=== PATIENT | female | born 1980 | race Caucasian/White ===

== ENCOUNTER 2019-07-12 08:51 | Emergency (ER) | payer SELFPAY ==
[2019-07-12 10:17] LABS: APPEARANCE,URINE CLEAR; BILIRUBIN,URINE NEGATIVE (NEGATIVE); COLOR,URINE STRAW; GLUCOSE, URINE NEGATIVE (NEGATIVE); KETONES,URINE NEGATIVE (NEGATIVE); LEUKOCYTE ESTERASE,URINE SMALL (NEGATIVE); NITRITE,URINE NEGATIVE (NEGATIVE); PROTEIN,URINE NEGATIVE (NEGATIVE); URINE SPECIFIC GRAVITY 1.009; UROBILINOGEN,URINE NEGATIVE mg/dL (<2.0)
[2019-07-12 10:25] LABS: ABSOLUTE EOSINOPHILS # (AUTO) 0.2 10^3/uL (0.0-0.6); ABSOLUTE LYMPHOCYTES (AUTO) 1.4 10^3/uL (0.5-4.7); ABSOLUTE MONOCYTES (AUTO) 0.5 10^3/uL (0.1-1.4); ABSOLUTE NEUT (AUTO) 4.9 10^3/uL (1.7-8.2); BASOPHILS % (AUTO) 0.5 % (0-2); EOSINOPHILS % (AUTO) 2.5 % (0-6); HEMATOCRIT 36.5 % (36.0-47.0); HEMOGLOBIN 12.7 g/dL (12.0-15.5); LYMPHOCYTES % (AUTO) 20.1 % (13-45); MEAN CORPUSCULAR HEMOGLOBIN 32.1 pg (27.0-33.4); MEAN CORPUSCULAR HGB CONC 34.7 g/dL (32.0-36.0); MEAN CORPUSCULAR VOLUME 92 fl (80-97); MONOCYTES % (AUTO) 7.1 % (3-13); PLATELET COUNT 157 10^3/uL (150-450); RED BLOOD COUNT 3.95 10^6/uL (3.72-5.28); RED CELL DISTRIBUTION WIDTH 12.5 % (11.5-14.0); SEGMENTED NEUTROPHILS % (AUTO) 69.8 % (42-78); TOTAL CELLS COUNTED % (AUTO) 100 %; WHITE BLOOD COUNT 7.1 10^3/uL (4.0-10.5)
[2019-07-12] MEDS ORDERED: ONDANSETRON HCL INJ/PF 4 MG/2 ML SDV IV ONE (10:41)
[2019-07-12] MEDS ORDERED: METHOCARBAMOL INJ/PF 1000 MG/10 ML SDV IV ONE (10:41)
[2019-07-12] MEDS ORDERED: HYDROMORPHONE HCL INJ/PF 2 MG/ML AMPULE IV ONE ×2 (10:41→12:31)
[2019-07-12] MEDS ORDERED: KETOROLAC TROMETHAMINE INJ/PF 30 MG/1 ML SDV IV ONE (10:41)
[2019-07-12 10:54] LABS: ALKALINE PHOSPHATASE 49 U/L (38-126); ANION GAP 8 (5-19); ASPARTATE AMINO TRANSFERASE 20 U/L (14-36); BILIRUBIN,DIRECT 0.2 mg/dL (0.0-0.4); BILIRUBIN,TOTAL 0.4 mg/dL (0.2-1.3); BLOOD UREA NITROGEN 14 mg/dL (7-20); CARBON DIOXIDE 29 mmol/L (22-30); CHLORIDE 101 mmol/L (98-107); GLUCOSE 82 mg/dL (75-110); POTASSIUM 4.2 mmol/L (3.6-5.0); TOTAL PROTEIN 6.8 g/dL (6.3-8.2)
--- NOTE | 2019-07-12 10:55 | ER Document Report ---
Entered by TRI BANERJEE SCRIBE 07/12/19 1025 Acting as scribe for:NESHA GILMORE MD ED General - General Chief Complaint: Flank Pain Stated Complaint: FLANK PAIN Time Seen by Provider: 07/12/19 10:21 Mode of Arrival: Ambulatory Information source: Patient Notes: This 38 year old female patient with a history of kidney stones presents to the ED today with complaints of right-sided flank pain of insidious onset that began x3 days ago. Patient states that she has had 12+ lithotripsies in the past x3 years, the most recent on her right side in April, so she believes she may have another kidney stone. Patient reports associated nausea, chills on and off, a throbbing frontal headache that began yesterday morning, and urinary frequency that may be due to increased water intake from trying to flush out the possible stone. Patient states that she took aleve, toradol, and zorfan without relief. Patient denies fever, abdominal pain, vomiting, or pain and burning with urination. The patient recently moved to this area from the [facility]. Review of the controlled substance reporting database shows multiple narcotic prescriptions written in the past 7 months in [facility]. Last prescription was in the middle of April 2019. - Related Data Allergies/Adverse Reactions: No Known Allergies Allergy (Verified 07/12/19 10:33) Home Medications: Porzac. propanolol. gabapentin Past Medical History - General Information source: Patient - Social History Smoking Status: Former Smoker - quit x10 years ago Cigarette use (# per day): No Chew tobacco use (# tins/day): No Smoking Education Provided: No Frequency of alcohol use: None Drug Abuse: None Lives with: Spouse/Significant other Family History: Reviewed & Not Pertinent Patient has suicidal ideation: No Patient has homicidal ideation: No Renal/ Medical History: Reports: Hx Kidney Stones - x12+ in the last 3 years Musculoskeletal Medical History: Reports Hx Fibromyalgia Psychiatric Medical History: Reports: Hx Depression Past Surgical History: Reports: Hx Breast Surgery - breast augmentation 2013, Hx Herniorrhaphy Review of Systems - Review of Systems Constitutional: See HPI, Chills EENT: No symptoms reported Cardiovascular: No symptoms reported Respiratory: No symptoms reported Gastrointestinal: See HPI, Nausea. denies: Abdominal pain, Vomiting Genitourinary: See HPI, Frequency, Flank pain. denies: Burning, Dysuria Female Genitourinary: No symptoms reported Musculoskeletal: No symptoms reported Skin: No symptoms reported Hematologic/Lymphatic: No symptoms reported Neurological/Psychological: See HPI, Headaches -: Yes All other systems reviewed and negative Physical Exam - Vital signs Vitals: Temp Pulse Resp BP Pulse Ox 97.7 F 75 16 137/80 H 100 07/12/19 08:55 07/12/19 08:55 07/12/19 08:55 07/12/19 08:55 07/12/19 08:55 - General General appearance: Alert - HEENT Head: Normocephalic, Atraumatic Eyes: Normal Pupils: PERRL - Respiratory Respiratory status: No respiratory distress Chest status: Nontender Breath sounds: Normal Chest palpation: Normal - Cardiovascular Rhythm: Regular Heart sounds: Normal auscultation Murmur: No - Abdominal Inspection: Normal Distension: No distension Bowel sounds: Normal Tenderness: Nontender - No tenderness with palpation deep into the RUQ, Other - Abdomen soft Organomegaly: No organomegaly - Back Back: Tender - Right lumbar back musculature tenderness with palpation around the L1-2 region, Other - No skin rash noted - Extremities General upper extremity: Normal inspection General lower extremity: Normal inspection - Neurological Neuro grossly intact: Yes - Psychological Associated symptoms: Normal affect, Normal mood - Skin Skin Temperature: Warm Skin Moisture: Dry Skin Color: Normal Course - Re-evaluation Re-evalutation: 07/12/19 12:15 Urinalysis showed a single RBC on high-power field, no WBCs. Leukocyte esterase negative. Dipstick negative for blood. CT scan shows mild right hydronephrosis and hydroureter without ureteral stone. There is a 2 mm stone in the right dependent aspect of the bladder which is consistent with a recently passed stone. There are no stones in the kidneys. 07/12/19 12:15 All these findings are reviewed with the patient. She states she is never had pain like this when she did not have an obstructing stone or urine infection. She states that the medications she has received so far does not seem to be helping. Physical exam was most consistent with right flank and lumbar muscular pain. There was no tenderness on deep palpation into the right upper quadrant which should have put pressure on the kidney. - Vital Signs Vital signs: Temp Pulse Resp BP Pulse Ox 97.7 F 75 16 137/80 H 100 07/12/19 08:55 07/12/19 08:55 07/12/19 08:55 07/12/19 08:55 07/12/19 08:55 - Laboratory Result Diagrams: 07/12/19 10:10 07/12/19 10:10 Laboratory results interpreted by me: 07/12/19 09:56 Ur Leukocyte Esterase SMALL H - Diagnostic Test Radiology reviewed: Image reviewed, Reports reviewed - CT scan abdomen pelvis shows mild right hydronephrosis and hydroureter without ureteral stone. There is a 2 mm stone in the dependent right bladder region consistent with a recently passed stone. Discharge - Discharge Clinical Impression: Right flank pain Condition: Stable Disposition: HOME, SELF-CARE Additional Instructions: Flank Pain: We weren't able to prove an exact cause for your flank pain. Pain in the flank can be caused by a muscle strain or spasm. Sometimes a kidney stone causes pain, but can't be found on our tests. Infection in the kidney should be evident on a urine test. Early shingles can occasionally cause flank pain, without the rash that proves the diagnosis. On rare occasions, disease of the pancreas, aorta, spleen, or colon can create pain in the flank. At this time, there's no evidence of a dangerous condition, and it seems safe for you to be at home. If the pain goes away and does not come back, no further testing will be needed. If pain persists, or becomes more severe, we may need to repeat some tests or order additional new testing. Blood in the urine, urgency to urinate frequently, and pain that radiates to the groin can indicate a kidney stone. Fever may mean that the pain is due to infection, either of the kidney or the colon (diverticulitis). If your pain is early shingles, you should develop an eruption of blisters in the painful area within a few days. Call the doctor or return if you have pain that is spreading or becoming more severe, pain that does not resolve with time, fever, or any other new symptoms. CT scan today did not show any obstructing ureteral stones. There does appear to be a small stone in the bladder which could possibly be a recently passed stone. The urine does not have any blood or signs of infection noted. Your physical exam is most consistent with upper lumbar back muscle strain. Take medications as prescribed. Rest and limit activity that makes the pain worse. Follow-up with a local medical doctor if not improving. The local urology group is called to [facility] urology with an office in [place] and in [place]. RETURN TO THE EMERGENCY ROOM IF ANY NEW OR WORSENING SYMPTOMS. Prescriptions: Cyclobenzaprine HCl [Flexeril 5 mg Tablet] 5 mg PO TID PRN #15 tablet PRN Reason: Oxycodone HCl/Acetaminophen [Percocet 5-325 mg Tablet] 1 tab PO ASDIR PRN #12 tablet PRN Reason: Scribe Attestation: 07/12/19 11:23 I personally performed the services described in the documentation, reviewed and edited the documentation which was dictated to the scribe in my presence, and it accurately records my words and actions. I personally performed the services described in the documentation, reviewed and edited the documentation which was dictated to the scribe in my presence, and it accurately records my words and actions.
--- NOTE | 2019-07-12 11:49 | RADIOLOGY REPORT (SQ) ---
EXAM DESCRIPTION: CT ABD/PELVIS NO ORAL OR IV COMPLETED DATE/TIME: 07/12/2019 11:34 am REASON FOR STUDY: right flank pain, PMH multiple renal stones COMPARISON: None. TECHNIQUE: CT scan of the abdomen and pelvis performed without intravenous or oral contrast. Images reviewed with lung, soft tissue, and bone windows. Reconstructed coronal and sagittal MPR images revi ewed. All images stored on PACS. All CT scanners at this facility use dose modulation, iterative reconstruction, and/or weight based d osing when appropriate to reduce radiation dose to as low as reasonably achievable (ALARA). [facility]: Dose Right [facility]: CareDose [facility]: Dose Right [facility]: Teradose 4D [facility]: Smart [employer] RADIATION DOSE: CT Rad equipment meets quality standard of care and radiation dose reduction techniq ues were employed. CTDIvol: 9.6 mGy. DLP: 505 mGy-cm.mGy. LIMITATIONS: None. FINDINGS: LOWER CHEST: No significant findings. No nodules or infiltrates. NON-CONTRASTED LIVER, SPLEEN, ADRENALS: Evaluation limited by lack of IV contrast. No identified sign ificant masses. PANCREAS: No masses. No peripancreatic inflammatory changes. GALLBLADDER: No identified stones by CT criteria. No inflammatory changes to suggest cholecystitis. RIGHT KIDNEY AND URETER: No solid masses. Mild right hydronephrosis and hydroureter without ureteral calculus identified. LEFT KIDNEY AND URETER: No solid masses. No significant calcification. No hydronephrosis or hydrouret er. AORTA AND RETROPERITONEUM: No aneurysm. No retroperitoneal masses or adenopathy. BOWEL AND PERITONEAL CAVITY: No obvious masses or inflammatory changes. No free fluid. APPENDIX: Normal. PELVIS, BLADDER, AND ABDOMINAL WALL:No abnormal masses. Essure tubal occlusion devices. No free flu id. There is a 2 mm calculus in the dependent right aspect of the urinary bladder, which appears to be near but not within the ureterovesicular junction. BONES: No significant findings. OTHER: No other significant finding. IMPRESSION: Mild right hydronephrosis and hydroureter without ureteral calculus identified. There is a 2 mm calculus in the dependent right aspect of the urinary bladder, which appears to be near but n ot within the ureterovesicular junction. Findings are consistent with a recently passed right ureter al calculus. TECHNICAL DOCUMENTATION: JOB ID: [id number] Quality ID # [id number]: Final reports with documentation of one or more dose reduction techniques (e.g., Au tomated exposure control, adjustment of the mA and/or kV according to patient size, use of iterative reconstruction technique) 2010 [employer]- All Rights Reserved Reading location - IP/workstation name: [email or web address]
[2019-07-12 12:56] VITALS: BP 114/70
== END 2019-07-12 12:55 | disposition home or self-care (01) ==
LOC: ER 08:51
DX: N21.0 Calculus in bladder (principal); N13.30 Unspecified hydronephrosis; R10.9 Unspecified abdominal pain; R11.0 Nausea; R68.83 Chills (without fever); R51 Headache; R35.0 Frequency of micturition; Z79.899 Other long term (current) drug therapy; Z87.891 Personal history of nicotine dependence
CPT/HCPCS: 96376; 99284; 96375; 96365; 36415; 83690; 84703; 85025; 80053; 81001; 74176; J2800; J1885; J1170; J2405

== ENCOUNTER 2020-03-13 16:37 | Emergency (ER) | payer OTHER, MEDICAID ==
[2020-03-13] MEDS ORDERED: NORMAL SALINE 1000 ML 1,000 ML IV ONE (16:54)
[2020-03-13] MEDS ORDERED: KETOROLAC TROMETHAMINE INJ/PF 30 MG/1 ML SDV IV ONE (16:54)
--- NOTE | 2020-03-13 17:15 | ER Document Report ---
ED Medical Screen (RME) - General Chief Complaint: Flank Pain Stated Complaint: FLANK PAIN Time Seen by Provider: 03/13/20 16:45 - HPI Notes: 03/13/20 16:58 39-year-old with a history of nephrolithiasis and 13 lithotripsies female presents to emergency room for complaints of right flank pain that started last night. Reports that pain is become worse today. Patient states she had a virtual appointment with her PCP, although able to prescribe her was tramadol, she knows that this is not enough to manage her pain. Patient did take Zofran at home. Reports she has not had a menstrual cycle in years due to having an endometrial ablation done. Patient does not have a local urologist, should her last urologist was in [place]. Patient that had any pain medications today. Denies any fevers chills, chest pain, shortness of breath, vomiting or diarrhea. I have greeted and performed a rapid initial assessment of this patient. A comprehensive ED assessment and evaluation of the patient, analysis of test results and completion of the medical decision making process will be conducted by additional ED providers. PHYSICAL EXAMINATION: GENERAL: Well-appearing, well-nourished and in no acute distress. HEAD: Atraumatic, normocephalic. EYES: Pupils equal round extraocular movements intact, conjunctiva are normal. NECK: Normal range of motion CV: s1, s2 regular LUNGS: No respiratory distress abd: R CVA tenderness appreciated - Related Data Allergies/Adverse Reactions: No Known Allergies Allergy (Verified 07/12/19 10:33) Past Medical History Renal/ Medical History: Reports: Hx Kidney Stones - x12+ in the last 3 years Musculoskeltal Medical History: Reports Hx Fibromyalgia Psychiatric Medical History: Reports: Hx Depression Past Surgical History: Reports: Hx Breast Surgery - breast augmentation 2013, Hx Herniorrhaphy Physical Exam - Vital signs Vitals: Temp Pulse Resp BP Pulse Ox 98.3 F 79 20 133/70 H 98 03/13/20 16:46 03/13/20 16:46 03/13/20 16:46 03/13/20 16:46 03/13/20 16:46 Course - Vital Signs Vital signs: Temp Pulse Resp BP Pulse Ox 98.3 F 79 20 133/70 H 98 03/13/20 16:46 03/13/20 16:46 03/13/20 16:46 03/13/20 16:46 03/13/20 16:46
[2020-03-13 17:30] LABS: ABSOLUTE EOSINOPHILS # (AUTO) 0.1 10^3/uL (0.0-0.6); ABSOLUTE LYMPHOCYTES (AUTO) 1.6 10^3/uL (0.5-4.7); ABSOLUTE MONOCYTES (AUTO) 0.4 10^3/uL (0.1-1.4); ABSOLUTE NEUT (AUTO) 4.3 10^3/uL (1.7-8.2); BASOPHILS % (AUTO) 0.7 % (0-2); EOSINOPHILS % (AUTO) 1.2 % (0-6); HEMATOCRIT 39.4 % (36.0-47.0); HEMOGLOBIN 13.6 g/dL (12.0-15.5); LYMPHOCYTES % (AUTO) 24.9 % (13-45); MEAN CORPUSCULAR HEMOGLOBIN 31.4 pg (27.0-33.4); MEAN CORPUSCULAR HGB CONC 34.5 g/dL (32.0-36.0); MEAN CORPUSCULAR VOLUME 91 fl (80-97); MONOCYTES % (AUTO) 5.5 % (3-13); PLATELET COUNT 166 10^3/uL (150-450); RED BLOOD COUNT 4.33 10^6/uL (3.72-5.28); RED CELL DISTRIBUTION WIDTH 13.8 % (11.5-14.0); SEGMENTED NEUTROPHILS % (AUTO) 67.7 % (42-78); TOTAL CELLS COUNTED % (AUTO) 100 %; WHITE BLOOD COUNT 6.4 10^3/uL (4.0-10.5)
[2020-03-13 17:39] LABS: APPEARANCE,URINE SLIGHTLY-CLOUDY; BILIRUBIN,URINE NEGATIVE (NEGATIVE); COLOR,URINE YELLOW; GLUCOSE, URINE NEGATIVE (NEGATIVE); KETONES,URINE NEGATIVE (NEGATIVE); LEUKOCYTE ESTERASE,URINE NEGATIVE (NEGATIVE); NITRITE,URINE NEGATIVE (NEGATIVE); PROTEIN,URINE NEGATIVE (NEGATIVE); URINE SPECIFIC GRAVITY 1.024; UROBILINOGEN,URINE NEGATIVE mg/dL (<2.0)
[2020-03-13 17:48] LABS: ALKALINE PHOSPHATASE 43 U/L (38-126); ANION GAP 6 (5-19); ASPARTATE AMINO TRANSFERASE 19 U/L (14-36); BILIRUBIN,DIRECT 0.2 mg/dL (0.0-0.4); BILIRUBIN,TOTAL 0.5 mg/dL (0.2-1.3); BLOOD UREA NITROGEN 13 mg/dL (7-20); CALCIUM 9.4 mg/dL (8.4-10.2); CARBON DIOXIDE 29 mmol/L (22-30); CHLORIDE 103 mmol/L (98-107); GLUCOSE 80 mg/dL (75-110); POTASSIUM 4.7 mmol/L (3.6-5.0); TOTAL PROTEIN 6.3 g/dL (6.3-8.2)
--- NOTE | 2020-03-13 18:36 | RADIOLOGY REPORT (SQ) ---
EXAM DESCRIPTION: CT ABD/PELVIS NO ORAL OR IV IMAGES COMPLETED DATE/TIME: 03/13/2020 6:19 pm REASON FOR STUDY: R flank pain x 1 day COMPARISON: 07/12/2019 TECHNIQUE: CT scan of the abdomen and pelvis performed without intravenous or oral contrast. Images reviewed with lung, soft tissue, and bone windows. Reconstructed coronal and sagittal MPR images revi ewed. All images stored on PACS. All CT scanners at this facility use dose modulation, iterative reconstruction, and/or weight based d osing when appropriate to reduce radiation dose to as low as reasonably achievable (ALARA). [facility]: Dose Right [facility]: CareDose [facility]: Dose Right [facility]: Teradose 4D [facility]: Smart [employer] RADIATION DOSE: CT Rad equipment meets quality standard of care and radiation dose reduction techniq ues were employed. CTDIvol: 7.8 mGy. DLP: 395 mGy-cm.mGy. LIMITATIONS: None. FINDINGS: LOWER CHEST: No significant findings. No nodules or infiltrates. NON-CONTRASTED LIVER, SPLEEN, ADRENALS: Evaluation limited by lack of IV contrast. No identified sign ificant masses. PANCREAS: No masses. No peripancreatic inflammatory changes. GALLBLADDER: No identified stones by CT criteria. No inflammatory changes to suggest cholecystitis. RIGHT KIDNEY AND URETER: No suspicious masses. Assessment limited by lack of IV contrast. No signif icant calcifications. No hydronephrosis or hydroureter. LEFT KIDNEY AND URETER: No suspicious masses. Assessment limited by lack of IV contrast. No signifi cant calcifications. No hydronephrosis or hydroureter. AORTA AND RETROPERITONEUM: No aneurysm. No retroperitoneal masses or adenopathy. BOWEL AND PERITONEAL CAVITY: No obvious masses or inflammatory changes. No free fluid. APPENDIX: Not identified. PELVIS, BLADDER, AND ABDOMINAL WALL:No abnormal masses. No free fluid. Bladder normal. BONES: No significant findings. OTHER: No other significant finding. IMPRESSION: NO SIGNIFICANT OR ACUTE PROCESS IN THE ABDOMEN OR PELVIS. COMMENT: Quality ID # [id number]: Final reports with documentation of one or more dose reduction techniques (e.g., Automated exposure control, adjustment of the mA and/or kV according to patient size, use of iterative reconstruction technique) TECHNICAL DOCUMENTATION: JOB ID: [id number] 2010 [employer]- All Rights Reserved Reading location - IP/workstation name: [email or web address]
--- NOTE | 2020-03-13 20:24 | ER Document Report ---
ED General - General Chief Complaint: Flank Pain Stated Complaint: FLANK PAIN Time Seen by Provider: 03/13/20 16:45 Notes: 39-year-old female history of multiple episodes of nephrolithiasis and lithotripsy presents with few weeks of intermittent lower right back pain without radiation exacerbated by standing for long periods of time associated with nausea when pain is severe. Patient was concerned that pain was secondary to additional kidney stone or pyelonephritis. Patient denies any vomiting and has been able to tolerate p.o. without difficulty. Patient denies any fever, dysuria, urgency, frequency, hematuria, recent antibiotics, pelvic symptoms, abdominal pain, trauma, change in gait, weakness or numbness, bowel incontinence, urinary retention, drug use, anticoagulation. 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 - Related Data Allergies/Adverse Reactions: No Known Allergies Allergy (Verified 07/12/19 10:33) Past Medical History - General Information source: Patient - Social History Smoking Status: Never Smoker Chew tobacco use (# tins/day): No Frequency of alcohol use: None Drug Abuse: None Family History: Reviewed & Not Pertinent Patient has homicidal ideation: No Renal/ Medical History: Reports: Hx Kidney Stones - x12+ in the last 3 years Musculoskeletal Medical History: Reports Hx Fibromyalgia Psychiatric Medical History: Reports: Hx Depression Past Surgical History: Reports: Hx Breast Surgery - breast augmentation 2013, Hx Herniorrhaphy Review of Systems - Review of Systems Notes: REVIEW OF SYSTEMS: CONSTITUTIONAL : Denies fever, or sweats. EENT: Denies recent cold/sinus symptoms, denies throat pain CARDIOVASCULAR: Denies chest pain, TACO RESPIRATORY: Denies cough, denies shortness of breath. GASTROINTESTINAL: Denies abdominal pain, +nausea -vomiting. GENITOURINARY: Denies difficulty urinating, painful urination. FEMALE GENITOURINARY: Denies abnormal vaginal bleeding, vaginal discharge. MUSCULOSKELETAL: Denies neck pain, +back pain. SKIN: Denies rash or skin lesions. HEMATOLOGIC : Denies easy bruising or bleeding. LYMPHATIC: Denies swollen, enlarged glands. NEUROLOGICAL: Denies headache, denies change in gait. PSYCHIATRIC: Denies anxiety or stress or depression. Physical Exam - Vital signs Vitals: Temp Pulse Resp BP Pulse Ox 98.3 F 79 20 133/70 H 98 03/13/20 16:46 03/13/20 16:46 03/13/20 16:46 03/13/20 16:46 03/13/20 16:46 - Notes Notes: PHYSICAL EXAMINATION: GENERAL: Well-appearing, well-nourished and in no acute distress. HEAD: Atraumatic, normocephalic. EYES: Pupils equal round and appropriate constriction, sclera anicteric, conjunctiva are normal. ENT: nares patent, moist mucous membranes. NECK/BACK: Normal range of motion, supple without lymphadenopathy, no C/T/L/S spinal tenderness or deformity, tenderness and increased paraspinal muscle tension over lower lateral lower lumbar paraspinal muscles on right side, normal inspection, no pain in thoracic region LUNGS: Normal respiratory rate and effort, speaking in full sentences HEART: Regular rate, no JVD, no lower extremity edema ABDOMEN: Soft, nontender, no guarding, no masses, no CVAT EXTREMITIES: Normal range of motion, no pitting or edema. No cyanosis. 5 out of 5 strength in bilateral lower extremities, DP pulses 2+ bilaterally, normal sensation bilaterally, normal straight leg raise bilaterally NEUROLOGICAL: Awake, alert, conversing appropriately, moves all extremities s pontaneously. PSYCH: Normal mood, normal affect. SKIN: Warm, Dry, normal turgor, no rashes or lesions noted. Course - Re-evaluation Re-evalutation: ISTOP results: [facility]: [facility] 1980 Address: [address] [place] [id number]: Female Rx Written Rx Dispensed Drug Strength Quantity Days Supply 10/06/2018 10/06/2018 LORAZEPAM 0.5 MG TABLET 10.0 30 Prescriber Name MARIAMA HUNT Payment Method Medicaid Dispenser [id number] 07/16/2018 09/15/2018 ZOLPIDEM TARTRATE 10 MG TABLET 30.0 30 Prescriber Name MARIAMA HUNT Payment Method Medicaid Dispenser [facility] #[id number] 07/18/2018 07/18/2018 OXYCODONE-ACETAMINOPHEN 10-325 15.0 3 Prescriber Name JOÃO BURGOS Payment Method [id number]: [facility] 1980 Address: [address] [place] [id number]: Female Rx Written Rx Dispensed Drug Strength Quantity Days Supply 07/16/2018 08/16/2018 ZOLPIDEM TARTRATE 10 MG TABLET 30.0 30 Prescriber Name MARIAMA HUNT Payment Method Medicaid Dispenser [id number] Patient Name: MARIAMA Salguero Date: 1980 Address: [address] [place] [id number]: Female Rx Written Rx Dispensed Drug Strength Quantity Days Supply 07/17/2018 07/17/2018 OXYCODONE-ACETAMINOPHEN 5-325 10.0 2 Prescriber Name JOÃO BURGOS Payment Method Medicaid Dispenser [id number] 07/16/2018 07/17/2018 ZOLPIDEM TARTRATE 10 MG TABLET 30.0 30 Prescriber Name MARIAMA HUNT Payment Method Medicaid Dispenser [id number] 07/01/2018 07/01/2018 OXYCODONE-ACETAMINOPHEN 10-325 20.0 5 Prescriber Name JOÃO BURGOS Payment Method Medicaid Dispenser [id number] 06/17/2018 06/17/2018 ZOLPIDEM TARTRATE 10 MG TABLET 30.0 30 Prescriber Name MARIAMA HUNT Payment Method Medicaid Dispenser [id number] 05/18/2018 05/18/2018 ZOLPIDEM TARTRATE 10 MG TABLET 30.0 30 Prescriber Name MARIAMA HUNT Payment Method Medicaid Dispenser [id number] 02/22/2018 02/23/2018 OXYCODONE-ACETAMINOPHEN 10-325 16.0 4 Prescriber Name JOÃO BURGOS Payment Method Medicaid Dispenser [id number] 02/20/2018 02/20/2018 OXYCODONE-ACETAMINOPHEN 10-325 15.0 3 Prescriber Name MD MICHAEL, SHYANNE Payment Method Medicaid Dispens[id number] 02/16/2018 02/16/2018 LORAZEPAM 1 MG TABLET 10.0 30 Prescriber Name MD SIMEON, VAIBHAV Payment Method Medicaid Dispenser [facility]04[facility] 02/05/2018 02/05/2018 OXYCODONE-ACETAMINOPHEN 10-325 20.0 5 Prescriber Name JOÃO BURGOS Payment Method [facility] 01/25/2018 01/25/2018 OXYCODONE-ACETAMINOPHEN 10-325 16.0 4 Prescriber Name LORETTA, JOÃO Payment Method Medicaid Dispenser [id number] 01/16/2018 01/22/2018 OXYCODONE-ACETAMINOPHEN 10-325 15.0 3 Prescriber Name LORETTA, JOÃO Payment Method Medicaid Dispenser [id number] 01/15/2018 01/15/2018 OXYCODONE-ACETAMINOPHEN 5-325 18.0 3 Prescriber Name LORETTA JOÃO Payment Method Medicaid Dispenser [facility]83 01/13/2018 01/13/2018 OXYCODONE-ACETAMINOPHEN 10-325 12.0 3 Prescriber Name KARINA CARMONA Payment Method Medicaid Dispenser [facility][id number] 01/12/2018 01/12/2018 HYDROCODONE-ACETAMIN 5-325 MG 8.0 1 Prescriber Name SILVINA GROVER Payment Method Medicaid Dispenser [facility] 09/29/2017 11/15/2017 LORAZEPAM 1 MG TABLET 30.0 30 Prescriber Name MD SIMEON, VAIBHAV Payment Method Medicaid Dispenser [id number] 11/13/2017 11/13/2017 ZOLPIDEM TARTRATE 5 MG TABLET 15.0 15 Prescriber Name KARINA CARMONA Payment Method Medicaid Dispenser [facility] 09/29/2017 10/17/2017 LORAZEPAM 1 MG TABLET 30.0 30 Prescriber Name MD SIMEON, VAIBHAV Payment Method Medicaid Dispenser [facility] 09/29/2017 09/30/2017 ZOLPIDEM TARTRATE 5 MG TABLET 15.0 15 Prescriber Name MD SIMEON, VAIBHAV Payment Method Medicaid Dispenser [facility] 09/09/2017 09/17/2017 LORAZEPAM 1 MG TABLET 60.0 30 Prescriber Name KARINA CARMONA Payment Method Medicaid Dispenser [facility] 08/10/2017 09/02/2017 LORAZEPAM 1 MG TABLET 30.0 30 Prescriber Name KARINA CARMONA Payment Method Medicaid Dispenser [facility] 08/10/2017 08/10/2017 LORAZEPAM 1 MG TABLET 30.0 30 Prescriber Name KARINA CARMONA Payment Method Medicaid [facility] Patient Name: MARIAMA Joseph Date: 1980 Address: [address] [place] [address] [place], [place] [id number]: Female Rx Written Rx Dispensed Drug Strength Quantity Days Supply 12/29/2019 02/23/2020 ZOLPIDEM TARTRATE 10 MG TABLET 30.0 30 Prescriber Name MARY, NI Payment Method [facility] 02/20/2020 02/20/2020 LORAZEPAM 1 MG TABLET 60.0 30 Prescriber Name DA ROMEO Payment Method Insurance Dispenser [facility] 12/29/2019 01/26/2020 ZOLPIDEM TARTRATE 10 MG TABLET 30.0 30 Prescriber Name MARY NI Payment Method [facility] 12/29/2019 12/29/2019 LORAZEPAM 1 MG TABLET 60.0 30 Prescriber Name MARY, NI Payment Method Insurance Dispenser [facility] 12/29/2019 12/29/2019 ZOLPIDEM TARTRATE 10 MG TABLET 30.0 30 Prescriber Name MARY, NI Payment Method Insurance Dispenser [facility] 07/12/2019 07/14/2019 OXYCODONE-ACETAMINOPHEN 5-325 12.0 2 Prescriber Name MD DEIRDRE, NESHA Payment Method Insurance Dispenser [facility] 03/13/20 21:34 Right lower lumbar back pain with no urinary symptoms, no infectious symptoms, no stones on CT, no signs of infection on UA, no neuro symptoms, no neuro deficits on exam, pain controlled, patient tolerating p.o. Patient's pain very likely muscle strain in lumbar paraspinal muscles, discussed return to ED precautions with patient at length and she demonstrated understanding of them. Gave her information for PCP an orthopedic surgeon to follow-up with. Patient ready for discharge. - Vital Signs Vital signs: Temp Pulse Resp BP Pulse Ox 98.6 F 68 18 139/89 H 98 03/13/20 20:06 03/13/20 20:06 03/13/20 20:06 03/13/20 20:06 03/13/20 20:06 - Laboratory Result Diagrams: 03/13/20 17:15 03/13/20 17:15 Discharge - Discharge Clinical Impression: Back pain Qualifiers: Back pain location: low back pain Chronicity: acute Back pain laterality: right Sciatica presence: without sciatica Qualified Code(s): M54.5 - Low back pain Disposition: HOME, SELF-CARE Additional Instructions: Low Back Pain Three out of every four people will have an episode of disabling back pain during their lifetime. Most commonly the pain is due to straining of the muscles and ligaments in the low back. Usual treatment includes: (1) Rest on a firm surface. Avoid lying on your stomach. (2) Ice pack the painful area. After a few days, gentle heat may be used intermittently to relax the area, or ice packs can be continued. (3) Medication may be needed -- muscle relaxers and antiinflammatory medicines are commonly used. (4) As the back improves, exercises are prescribed to strengthen the back and abdominal muscles. Your doctor will advise you on the proper care for your back at each stage in your recovery. You may be better in a few days -- or healing may take several weeks. If new symptoms of a "herniated disc" (radiation of pain, numbness, or tingling down the back of the leg or weakness in the leg) occur, you should be re-examined. Further testing may be necessary. Follow-up with your primary doctor and orthopedic surgeon within 1 week. If you have any worsening symptoms such as difficulty walking, weakness or numbness, difficulty holding her bowel movements, difficulty urinating, fever of 100.4 or higher, vomiting, worsening pain, or any other worsening or alarming symptoms return to the emergency department immediately. Stop taking steroids and NSAIDs if you have any abdominal discomfort, return to the emergency department immediately if you have any vomiting with blood, black stool, or bloody stool. Prescriptions: Prednisone [Deltasone 20 mg Tablet] 2 tab PO DAILY 4 Days #8 tablet Cyclobenzaprine HCl [Flexeril 10 mg Tablet] 10 mg PO TIDP PRN #10 tab PRN Reason: Muscle Spasms Lidocaine [Lidoderm 5% (700 mg) Transdermal Patch] 1 patch TP DAILY #10 adh..pa tc Forms: Return to Work Referrals: MIKE CHAMPAGNE MD [ACTIVE STAFF] - Follow up in 1 week GEOFF GNOZALES MD [ACTIVE STAFF] - Follow up in 1 week DOMINGA ROWE MD [ACTIVE STAFF] - Follow up in 1 week PADDY RIVAS MD [ACTIVE STAFF] - Follow up in 1 week
[2020-03-13] MEDS ORDERED: KETOROLAC TROMETHAMINE INJ/PF 30 MG/1 ML SDV ONE (20:33)
[2020-03-13] MEDS ORDERED: LIDOCAINE 5% (700 MG) TRANSDERMAL ADH..PATCH TP ONE (21:17)
[2020-03-13] MEDS ORDERED: PREDNISONE 20 MG TABLET PO ONE (21:17)
[2020-03-13 22:00] VITALS: BP 134/92
== END 2020-03-13 22:02 | disposition home or self-care (01) ==
LOC: ER 16:37
DX: M54.5 Low back pain (principal); Z87.442 Personal history of urinary calculi; Z79.899 Other long term (current) drug therapy
CPT/HCPCS: 99285; 96361; 96374; 36415; 85025; 81025; 80053; 81001; 74176; J1885; J7512; J7030